=== PATIENT | female | born 1990 | race Caucasian/White ===

== ENCOUNTER 2017-08-09 07:19 | Inpatient (IN) | payer MEDICAID ==
[~2017-08-09] VITALS: Ht 162.6 cm; Wt 99.7 kg
[2017-08-09 09:18] LABS: BASOPHILS % (AUTO) 0.5 % (0.0-2.0); EOSINOPHILS % (AUTO) 0.9 % (1.0-6.0); HEMATOCRIT 40.3 % (36-46); HEMOGLOBIN 13.3 g/dL (12.0-16.0); LYMPHOCYTES # (AUTO) 2.2 K/uL (1.0-4.8); LYMPHOCYTES % (AUTO) 17.2 % (22.0-44.0); MEAN CORPUSCULAR HEMOGLOBIN 27.9 pg (26.0-34.0); MEAN CORPUSCULAR VOLUME 85 fL (80-100); MONOCYTES # (AUTO) 0.8 K/uL (0.1-1.0); MONOCYTES % (AUTO) 6.7 % (2.0-9.0); NEUTROPHILS # (AUTO) 9.5 K/uL (1.8-7.7); NEUTROPHILS % (AUTO) 74.7 % (40.0-70.0); PLATELET COUNT (AUTO) 375 K/uL (150-450); RED BLOOD CELL COUNT(AUTO) 4.78 MIL/uL (4.00-5.20); RED CELL DISTRIBUTION WIDTH 14.5 % (11.5-14.5)
[2017-08-09 09:43] LABS: ANION GAP 11 mmol/L (8-16); CALCIUM, TOTAL 9.6 mg/dL (8.8-10.5); CARBON DIOXIDE 25 mmol/L (22-29); CHLORIDE 103 mmol/L (98-107); CREATININE 0.85 mg/dL (0.60-1.30); GLOMERULAR FILTR. RATE CALC > 60 mL/min (>60); GLUCOSE,RANDOM 108 mg/dL (70-110); POTASSIUM 4.6 mmol/L (3.5-5.1); SODIUM SERUM 139 mmol/L (136-145); UREA NITROGEN, BLOOD 11 mg/dL (7-18)
[2017-08-09] MEDS ORDERED: LORazepam 2 MG TABLET PO PRN (10:30)
[2017-08-09] MEDS ORDERED: ZOLPIDEM TARTRATE 10 MG TABLET PO PRN (10:30)
[2017-08-09] MEDS ORDERED: HALOPERIDOL 5 MG TABLET PO PRN (10:30)
[2017-08-09 18:28] VITALS: BP 123/88
[2017-08-10 05:08] VITALS: BP 143/99
[2017-08-10] MEDS ORDERED: LORazepam 2 MG/ML VIAL IM ONE (09:00)
[2017-08-10] MEDS ORDERED: DiphenhydrAMINE HCL 50 MG/ML VIAL IM ONE (09:00)
[2017-08-10] MEDS ORDERED: HALOPERIDOL LACTATE 5 MG/ML VIAL IM ONE (09:00)
[2017-08-10] MEDS ORDERED: BREX1TAB PO (10:51)
[2017-08-10] MEDS ORDERED: BREXPIPRAZOLE 1 MG TABLET PO SCH (17:00)
[2017-08-10] MEDS: RisperiDONE 1 MG TABLET PO SCH (17:00)
[2017-08-10 19:44] VITALS: BP 114/72
[2017-08-10] MEDS ORDERED: IBUPROFEN 400 MG TABLET PO PRN (21:00)
[2017-08-10] MEDS ORDERED: ACETAMINOPHEN 325 MG TABLET PO PRN (21:00)
[2017-08-11 07:54] LABS: CHOL/HDL RATIO 2.2 (3.9-5.7); THYROID STIMULATING HORMONE 2.18 uIU/mL (0.36-3.74)
[2017-08-11 08:00] VITALS: BP 126/80
[2017-08-11 08:37] LABS: HEMOGLOBIN A1C 5.4 % (4.5-6.2)
[2017-08-11] MEDS: RisperiDONE 1 MG TABLET PO SCH ×2 (09:00→17:00)
[2017-08-11 16:03] VITALS: BP 140/78
[2017-08-12 00:38] VITALS: BP 135/79
[2017-08-12] MEDS: RisperiDONE 1 MG TABLET PO SCH ×3 (09:12→17:58)
[2017-08-12 10:54] VITALS: BP 133/70
[2017-08-13] MEDS: RisperiDONE 1 MG TABLET PO SCH (08:14)
[2017-08-13 14:03] VITALS: BP 131/75
[2017-08-13 16:30] VITALS: BP 131/60
[2017-08-13] MEDS: RisperiDONE 2 MG TABLET PO SCH (16:33)
[2017-08-14 08:00] VITALS: BP 137/87
[2017-08-14] MEDS: RisperiDONE 2 MG TABLET PO SCH ×2 (08:20→18:00)
[2017-08-14 16:46] VITALS: BP 131/73
[2017-08-15 08:10] VITALS: BP 130/91
[2017-08-15] MEDS: RisperiDONE 2 MG TABLET PO SCH ×2 (09:51→17:18)
[2017-08-15 16:00] VITALS: BP 125/76
[2017-08-16] MEDS: RisperiDONE 2 MG TABLET PO SCH ×2 (08:05→16:56)
[2017-08-16 08:11] VITALS: BP 132/74
[2017-08-16 16:00] VITALS: BP 126/75
[2017-08-17] MEDS: RisperiDONE 2 MG TABLET PO SCH (08:11)
[2017-08-17 08:28] VITALS: BP 149/93
[2017-08-17] MEDS ORDERED: RISP2 PO (09:30)
== END 2017-08-17 15:05 | disposition home or self-care (01) | DRG 750 ==
LOC: EMS 07:22 → 3EI 17:03 → 3EC 08-10 09:56
PROVIDERS: ADMIT Psychiatry & Neurology Child & Adolescent Psychiatry; ATTEND Psychiatry & Neurology Child & Adolescent Psychiatry
DX: F20.0 Paranoid schizophrenia (principal); I10 Essential (primary) hypertension; D72.829 Elevated white blood cell count, unspecified; F41.9 Anxiety disorder, unspecified; G47.9 Sleep disorder, unspecified; R00.0 Tachycardia, unspecified
CPT/HCPCS: 83036; 84443; 99285; G0480; J1200; J1630; J2060